=== PATIENT | female | born 1950 | race Caucasian/White ===

== ENCOUNTER 2016-10-28 18:18 | Inpatient (IN) | payer MEDICARE, OTHER ==
[~2016-10-28] VITALS: Ht 175.3 cm; Wt 77.0 kg
[2016-10-28] MEDS ORDERED: SODIUM CHLORIDE 0.9% 1,000 ML IV ONE (18:25)
[2016-10-28] MEDS ORDERED: MORPHINE SULFATE 4 MG/ML, 1ML IVPush PRN (18:30)
[2016-10-28] MEDS ORDERED: SODIUM CHLORIDE 0.9% 1,000ML IVBOLUS ONE ×2 (18:30→19:00)
[2016-10-28] MEDS ORDERED: ONDANSETRON 2MG/ML, 2ML IVPush ONE (18:30)
[2016-10-28 19:03] LABS: ASPARTATE AMINO TRANSFERASE 25 U/L (15-37); BLOOD UREA NITROGEN 23 mg/dL (7-18)
[2016-10-28] MEDS ORDERED: ONDANSETRON 2MG/ML, 2ML ONE (19:06)
[2016-10-28] MEDS ORDERED: MORPHINE SULFATE 4 MG/ML, 1ML ONE (19:06)
[2016-10-28 19:14] LABS: DIFF TOTAL CELLS COUNTED 100 CELL DIFF
[2016-10-28 19:15] LABS: VERIFY COUNTS? YES
[2016-10-28] MEDS ORDERED: OMNIPAQUE 350 MG/ML, 100ML BOTTLE ONE (19:45)
[2016-10-28 20:21] LABS: DIFF TOTAL CELLS COUNTED 100 CELL DIFF
[2016-10-28 20:23] LABS: VERIFY COUNTS? YES
[2016-10-28] MEDS ORDERED: ESTR1PAT65 TD (21:07)
[2016-10-28] MEDS ORDERED: LEVO25TA2 PO (21:07)
[2016-10-28] MEDS ORDERED: CLON0.12 PO (21:07)
[2016-10-28 22:22] VITALS: BP 157/101
[2016-10-28] MEDS ORDERED: NICOTINE 21 MG/24 HR PATCH.TD24 TD ONE (22:30)
[2016-10-28] MEDS ORDERED: ONDANSETRON 2MG/ML, 2ML IVPush PRN (22:30)
[2016-10-28] MEDS: SODIUM CHLORIDE 0.9% 1,000 ML IV SCH (22:44)
[2016-10-28] MEDS: CIPROFLOXACIN/PMX 400MG/200ML 200 ML IV SCH (22:45)
[2016-10-28] MEDS: OXYcodone IR 5MG TABLET PO PRN (22:50)
[2016-10-28] MEDS: ACETAMINOPHEN 325 MG TABLET PO PRN (22:50)
[2016-10-28 22:54] VITALS: BP 157/101
[2016-10-29] MEDS: OXYcodone IR 5MG TABLET PO PRN ×6 (00:07→21:42)
[2016-10-29] MEDS: METRONIDAZOLE PMX 500MG/100ML 100 ML IV SCH ×3 (00:07→17:30)
[2016-10-29 02:00] VITALS: BP 116/80
[2016-10-29 02:50] LABS: DIFF TOTAL CELLS COUNTED 100 CELL DIFF
[2016-10-29 02:51] LABS: BLOOD UREA NITROGEN 16 mg/dL (7-18)
[2016-10-29 02:54] LABS: ASPARTATE AMINO TRANSFERASE 14 U/L (15-37)
[2016-10-29 02:56] LABS: VERIFY COUNTS? YES
[2016-10-29] MEDS ORDERED: LEVO125T5 PO (05:51)
[2016-10-29] MEDS: ACETAMINOPHEN 325 MG TABLET PO PRN ×2 (05:54→14:28)
[2016-10-29] MEDS ORDERED: LEVOTHYROXINE 25 MCG TABLET PO SCH (06:00)
[2016-10-29 07:20] VITALS: BP 105/72
[2016-10-29] MEDS: SODIUM CHLORIDE 0.9% 1,000 ML IV SCH ×2 (08:01→17:30)
[2016-10-29] MEDS: CIPROFLOXACIN/PMX 400MG/200ML 200 ML IV SCH (12:36)
[2016-10-29 12:59] VITALS: BP_SYST 104; BP_SYST 174; BP_DIAS 70; BP_DIAS 95
[2016-10-29 20:00] VITALS: BP 104/68
[2016-10-30] MEDS: CIPROFLOXACIN/PMX 400MG/200ML 200 ML IV SCH ×2 (00:55→12:36)
[2016-10-30] MEDS: METRONIDAZOLE PMX 500MG/100ML 100 ML IV SCH ×3 (01:52→18:08)
[2016-10-30] MEDS: OXYcodone IR 5MG TABLET PO PRN ×6 (01:52→22:17)
[2016-10-30 02:00] VITALS: BP 112/74
[2016-10-30 05:20] LABS: BLOOD UREA NITROGEN 5 mg/dL (7-18)
[2016-10-30] MEDS: LEVOTHYROXINE 125 MCG TABLET PO SCH (05:49)
[2016-10-30] MEDS: SODIUM CHLORIDE 0.9% 1,000 ML IV SCH ×2 (05:50→20:35)
[2016-10-30] MEDS: ACETAMINOPHEN 325 MG TABLET PO PRN (07:17)
[2016-10-30] MEDS ORDERED: MAGNESIUM SULFATE PMX 2GM/50ML 50 ML IV ONE (07:30)
[2016-10-30 07:33] VITALS: BP 108/72
[2016-10-30 14:01] VITALS: BP 112/78
[2016-10-30 19:27] VITALS: BP 130/82
[2016-10-30] MEDS: NICOTINE 21 MG/24 HR PATCH.TD24 TD SCH (20:35)
[2016-10-31] MEDS: CIPROFLOXACIN/PMX 400MG/200ML 200 ML IV SCH ×2 (00:29→13:03)
[2016-10-31] MEDS: METRONIDAZOLE PMX 500MG/100ML 100 ML IV SCH ×3 (01:38→18:30)
[2016-10-31] MEDS: OXYcodone IR 5MG TABLET PO PRN ×6 (01:57→22:44)
[2016-10-31 02:10] VITALS: BP 149/89
[2016-10-31 05:33] LABS: BLOOD UREA NITROGEN 3 mg/dL (7-18)
[2016-10-31] MEDS: LEVOTHYROXINE 125 MCG TABLET PO SCH (06:00)
[2016-10-31 07:25] VITALS: BP 155/95
[2016-10-31] MEDS: SODIUM CHLORIDE 0.9% 1,000 ML IV SCH ×2 (08:38→22:44)
[2016-10-31 13:30] VITALS: BP 151/95
[2016-10-31 19:28] VITALS: BP 149/95
[2016-10-31] MEDS: NICOTINE 21 MG/24 HR PATCH.TD24 TD SCH (20:56)
[2016-11-01] MEDS: CIPROFLOXACIN/PMX 400MG/200ML 200 ML IV SCH ×2 (00:54→14:19)
[2016-11-01 01:47] VITALS: BP 174/98
[2016-11-01] MEDS: METRONIDAZOLE PMX 500MG/100ML 100 ML IV SCH ×2 (02:13→10:08)
[2016-11-01] MEDS: OXYcodone IR 5MG TABLET PO PRN ×4 (02:36→16:38)
[2016-11-01] MEDS: LEVOTHYROXINE 125 MCG TABLET PO SCH (05:47)
[2016-11-01 06:02] LABS: BLOOD UREA NITROGEN 2 mg/dL (7-18)
[2016-11-01] MEDS ORDERED: POTASSIUM CHLORIDE 20 MEQ TAB.ER.PRT PO ONE (07:00)
[2016-11-01 07:59] VITALS: BP 160/93
[2016-11-01] MEDS: SODIUM CHLORIDE 0.9% 1,000 ML IV SCH (10:08)
[2016-11-01 13:26] VITALS: BP 155/93
[2016-11-01] MEDS ORDERED: CIPR500T87 PO (14:11)
[2016-11-01] MEDS ORDERED: HYDR-3240 PO (14:11)
[2016-11-01] MEDS ORDERED: METR500T PO (14:11)
== END 2016-11-01 16:51 | disposition home or self-care (01) | DRG 391 ==
LOC: ED 20:53 → 3NE 21:58
PROVIDERS: ADMIT Internal Medicine; ATTEND Internal Medicine
DX: A09 Infectious gastroenteritis and colitis, unspecified (principal); N17.0 Acute kidney failure with tubular necrosis; E87.1 Hypo-osmolality and hyponatremia; R00.0 Tachycardia, unspecified; B96.20 Unspecified Escherichia coli [E. coli] as the cause of diseases classified elsewhere; F17.210 Nicotine dependence, cigarettes, uncomplicated; E03.9 Hypothyroidism, unspecified; D75.1 Secondary polycythemia; N20.0 Calculus of kidney; H26.9 Unspecified cataract; Z87.442 Personal history of urinary calculi; Z90.710 Acquired absence of both cervix and uterus; Z90.12 Acquired absence of left breast and nipple; Z90.89 Acquired absence of other organs; Z80.6 Family history of leukemia; Z82.49 Family history of ischemic heart disease and other diseases of the circulatory system; Z84.1 Family history of disorders of kidney and ureter; Z88.0 Allergy status to penicillin; Z88.1 Allergy status to other antibiotic agents; Z79.899 Other long term (current) drug therapy; I70.8 Atherosclerosis of other arteries
CPT/HCPCS: 36415; 74177; 80048; 80053; 81001; 83605; 83690; 83735; 84145; 84439; 84443; 85014; 85018; 85025; 86850; 86900; 87040; 87046; 87077; 87086; 87186; 87324; 87328; 87329; 87899; 89055; 96374; 96375; J0744; J2405; Q9967; J3475; J7030